=== PATIENT | female | born 1945 | race Caucasian/White ===

== ENCOUNTER 2016-08-02 08:58 | Inpatient (IN) | payer MEDICARE, OTHER ==
[2016-07-20 14:16] LABS: BASOPHILS 0.3 %; BASOPHILS ABSOLUTE 0.02 10/3/uL (0.0-0.16); EOSINOPHILS 2.1 %; EOSINOPHILS ABSOLUTE 0.13 10/3/uL (0.0-0.53); HEMATOCRIT 40.7 % (36.0-48.0); HEMOGLOBIN 13.3 g/dL (12.0-16.0); IMMATURE GRANULOCYTES 0.2 %; IMMATURE GRANULOCYTES ABSOLUTE 0.01 10/3/uL (0.0-0.11); LYMPHOCYTES 28.1 %; MEAN CORPUS HGB CONC 32.7 g/dL (32.0-36.0); MEAN CORPUSCULAR HEMOGLOB 30.1 pg (26.0-34.0); MONOCYTES 5.3 %; MONOCYTES ABSOLUTE 0.32 10/3/uL (0.21-1.20); NEUTROPHILS ABSOLUTE 3.87 10/3/uL (2.02-8.40); PLATELET COUNT 218 10/3/uL (150-400); RBC DISTRIBUTION WIDTH 13.5 % (12.0-16.0); RED CELL COUNT 4.42 10/6/uL (4.0-5.6); WHITE BLOOD CELLS 6.1 10/3/uL (4.5-10.5)
[2016-07-20 14:17] LABS: MANUAL DIFF NO %; MEAN CORPUSCULAR VOLUME 92.1 fL (80-100)
[2016-07-20 14:33] LABS: A/G RATIO 1.7 (0.7-1.9); ALBUMIN 4.1 G/DL (3.5-5.0); ALKALINE PHOSPHATASE 87 U/L (45-117); BUN (BLOOD UREA NITROGEN) 21 MG/DL (6-23); CHLORIDE, SERUM 105 MMOL/L (96-112); CO2 (CARBON DIOXIDE) 30 MMOL/L (24-34); CREATININE 0.71 MG/DL (0.55-1.02); GFR AFRICAN AMERICAN 100 ML/MIN (>=60); GFR NON AFRICAN AMERICAN 86 ML/MIN (>=60); GLOBULIN 2.4 G/DL (2.5-4.1); POTASSIUM, SERUM 4.1 MMOL/L (3.5-5.3); SGOT(AST) 14 U/L (5-40); SGPT(ALT) 31 U/L (5-65); SODIUM, SERUM 143 MMOL/L (135-148); TOTAL BILIRUBIN 0.5 MG/DL (0-1.2); TOTAL PROTEIN 6.5 G/DL (6.0-8.5)
[2016-07-20 14:34] LABS: PARTIAL THROMBO TIME 27.3 SEC (22.5-37.2); PROTIME (NOT ORD) 12.9 SEC (12.0-14.5)
[2016-07-20 14:36] LABS: GLUCOSE, SERUM 109 MG/DL (60-99)
[2016-07-20 15:49] LABS: ASCORBIC ACID (UR NOT ORDER) NEG (NEG); BILIRUBIN, URINE NEGATIVE (NEG); KETONE, URINE NEGATIVE (NEG); LEUKOCYTE ESTERASE(NOT OR NEG (NEG); WBC (NOT ORDERED) (RFLEX) < 1 (0-5)
--- NOTE | ~2016-08-02 | OP ---
Record Of Operation [facility] [address] [place]. [address] NAME: ADA VALDIVIA : 45 STATUS : ADM IN PAT#: [id number] AGE: 70 ADM/REG DATE : 08/02/16 MR#: [id number] REPORT SERV DATE: 08/03/16 DICTATED BY: PAULINA STRINGER DATE: 08/02/16 REPORT STATUS : Draft TRANSCRIBED BY: MODL DATE: 08/02/16 DATE OF PROCEDURE: 08/02/2016 PREOPERATIVE DIAGNOSIS: Right knee arthritis. POSTOPERATIVE DIAGNOSIS: Right knee arthritis. PROCEDURE PERFORMED: Right total knee arthroplasty. SURGEON: Paulina Stringer M.D. SALES MANAGER: Candice Seals. ANESTHESIA: Spinal with sedation, adductor block and local infusion. PROCEDURE IN DETAIL: The patient is clearly identified and after obtaining informed consent is brought to the operating room at [facility] where anesthesia is induced uneventfully with excellent anesthetic effect. Subsequently, the affected extremity is prepped and draped in the usual manner and after an appropriate time-out procedure is performed, via an anterior approach, the skin is divided, fascial planes are elevated, paramedial approach to the knee is made. The structures themselves are elevated, excised, and debrided were appropriate, whereupon the patella is carefully everted, calipered, and planed and with the size and type being reproduced with the appropriate-size patella, trialing is performed successfully. At this point, the patella is then carefully subluxed laterally, the knee is flexed, osteophytes around the distal femur are removed, followed by the ACL being divided. The femoral canal is entered and vented, at which point with the intramedullary guide being utilized, the distal femoral cut is made. At this point, the tibia is carefully subluxed anteriorly. The surrounding soft tissues to the tibia are protected with Hohmann retractors, at which point the extramedullary guide is utilized to perform the proximal tibial cut and after cleansing these tissues, the spacer block is utilized in extension to confirm excellent extension, stability, and alignment. The guiding pins are then all carefully removed and the knee is then flexed. The femur is sized, whereupon the anterior, posterior, chamfer, and box cuts are made appropriately. The proximal tibia then is assessed. Osteophytes and surrounding soft tissues are removed and debrided were appropriate. Posterior osteophytes are removed as well. The menisci are excised and thus concluding trialings performed successfully. The proximal tibia then is carefully prepared utilizing proper cement technique. The permanent implants have been carefully placed into position uneventfully where upon copious irrigations performed, the permanent tibial implants applied and thus concluded. The joint was then copiously irrigated, at which point it is closed carefully in layers including Vicryl and jauna for the skin, at which point Aquacel sterile dressing is applied. The patient is allowed to awaken and is transferred to the bed and subsequently to the recovery room in stable condition having tolerated the procedure well. ESTIMATED BLOOD LOSS: 50 mL. Record Of Operation [facility] [address] [facility] [address] [place]. [address] NAME: ADA VALDIVIA : 45 STATUS : ADM IN [facility]#: [id number] AGE: 70 ADM/REG DATE : 08/02/16 MR#: [id number] REPORT SERV DATE: 08/03/16 DICTATED BY: PAULINA STRINGER DATE: 08/02/16 REPORT STATUS : Draft TRANSCRIBED BY: TEE DATE: 08/02/16 FLUIDS: 1100 mL. TOURNIQUET TIME: 39 minutes. PATHOLOGY: Sent specimen. MICROBIOLOGY: None. COMPLICATIONS: None. SPONGE AND NEEDLE COUNTS: Reportedly correct. ANTIBIOTICS: Administered appropriately preoperatively and ordered to be discontinued within 23 hours. IMPLANTS: Attune knee by DePuy, femur 8, tibia 8, patella 38, polyethylene 12/11. EL/TEE Paulina Stringer M.D. / [id number] CC: Paulina Stringer M.D.
--- NOTE | ~2016-08-02 | DS ---
Discharge Summary [facility] [address] [facility] [place]. [address] NAME: ADA VALDIVIA : 45 STATUS : DIS IN PAT#: [id number] AGE: 70 ADM/REG DATE : 08/02/16 MR#: [id number] REPORT SERV DATE: 08/16/16 DICTATED BY: PAULINA STRINGER DATE: 08/15/16 REPORT STATUS : Draft TRANSCRIBED BY: MODSpike DATE: 08/15/16 Data Collection from hospitalization DISCHARGE DIAGNOSES: 1. Right knee arthritis. 2. Hypertension. 3. Peripheral neuropathy. 4. Gastroesophageal reflux disease. 5. Irritable bowel syndrome. 6. Goiter. 7. Hypothyroidism. 8. Depression and anxiety. CONSULTATIONS: None. PROCEDURES PERFORMED: Right total knee arthroplasty, 08/02/2016. PATHOLOGY: Bone and soft tissue, right knee arthroplasty-changes consistent with degenerative joint disease, mild chronic synovitis-nonspecific. DISCHARGE MEDICATIONS: Wellbutrin XL 300 mg daily, vitamin D 1000 units daily, CoQ10 100 mg daily, hydrochlorothiazide 12.5 mg daily as instructed, [place] 5/325 one to two tablets every four hours as needed, Synthroid 50 mcg daily, Cozaar 50 mg twice a day as instructed, Robaxin 500 mg four times a day as needed, multivitamins one tablet daily, fish oil 1000 mg daily, Prilosec 40 mg daily, Crestor 5 mg at bedtime, probiotics/magnesium as instructed, Coumadin one tablet every evening. CONDITION AT DISCHARGE: Stable. DISPOSITION: The patient was discharged home on a regular diet with activities as instructed. She would follow up with Kade Willis, 08/15/[address] Paulina Stringer, 09/12/2016. HOSPITAL COURSE: This is a 70-year-old female, who has right knee arthritis. She has had bilateral knee pain. She said that cortisone injection had given her good relief, but only for a short period of time. Treatment options were discussed and it was elected to proceed with surgical intervention. She was admitted to the hospital at this time for further evaluation and treatment. Upon admission, she was taken to the operating room, where she underwent the above-mentioned procedure. She tolerated this well and there were no complications. On postop day #1, she was evaluated by Occupational and Physical Therapy. She was up sitting in a bedside chair. She complained of some dizziness on standing. Pain medications were adjusted. SANTI hose were in place. Over the next couple of days, she continued to progress. Discharge planning was performed. Hydrochlorothiazide and losartan were held for systolic blood pressure less than 120. Discharge planning was performed. On 08/05/2016, she was up sitting in a bedside chair. She had not had a bowel movement. She said that she does have problems with constipation normally. She said that she had been evaluated by Cardiology for orthostatic Discharge Summary [address] [address] NAME: ADA VALDIVIA : 45 STATUS : DIS IN PAT#: [id number] AGE: 70 ADM/REG DATE : 08/02/16 MR#: [id number] REPORT SERV DATE: 08/16/16 DICTATED BY: PAULINA STRINGER DATE: 08/15/16 REPORT STATUS : Draft TRANSCRIBED BY: TEE DATE: 08/15/16 hypotension. Discharge instructions were given. Due to her improved and stable condition, she was discharged home with the above-stated instructions. Information collected by: Rosa Jha I submit the above information as my discharge summary. BRONWYN/TEE Paulina Stringer M.D. / [id number] CC: Damaris Hall M.D.
[~2016-08-02 08:58] MED LIST: 8 HOUR650 MG PO; CALCIUM; CELEBREX2 PO; CELEBREX50 MG PO; CO Q-10100 MG PO; COZ25 PO; COZ50 PO; CRESTOR5 MG PO; FISH OIL300 MG PO; FISH-EPA1000 MG PO; FLEX PO; GLUCCHONDR PO; HYDROCHLOROT12.5 MG PO; LOVAZA1 GM PO; MAG; MAGNEBIND300 MG PO; MAGNESIUM; MARLYN FORMULA 50 PO; METHOC500B PO; MULTIPLE VIT PO; MULTIVITAMI1 PO; PRILO PO; PRILOSEC40 MG PO; PROBIOTIC; SKELAXIN8 PO; SYN.05 PO; VITAMIN D1000 UNI1 PO; VITD; WELLXL150 PO; WELLXL300 PO
[2016-08-03 06:06] LABS: HEMOGLOBIN 10.7 g/dL (12.0-16.0)
[2016-08-03 06:07] LABS: HEMATOCRIT 32.5 % (36.0-48.0)
[2016-08-03 06:12] LABS: INTERNATIONAL NORMAL RATI 1.1 UNITS (-); PROTIME (NOT ORD) 14.3 SEC (12.0-14.5)
[2016-08-03 06:21] LABS: CALCIUM, SERUM 8.9 MG/DL (8.5-10.4); CHLORIDE, SERUM 107 MMOL/L (96-112); CO2 (CARBON DIOXIDE) 27 MMOL/L (24-34); CREATININE 0.57 MG/DL (0.55-1.02); GFR AFRICAN AMERICAN 109 ML/MIN (>=60); GFR NON AFRICAN AMERICAN 94 ML/MIN (>=60); GLUCOSE, SERUM 116 MG/DL (60-99); POTASSIUM, SERUM 4.5 MMOL/L (3.5-5.3); SODIUM, SERUM 143 MMOL/L (135-148)
[2016-08-03 06:22] LABS: BUN (BLOOD UREA NITROGEN) 10 MG/DL (6-23)
[2016-08-03] MEDS ORDERED: C5 PO (14:26)
[2016-08-03] MEDS ORDERED: NORCO1 TA1 PO (14:27)
[2016-08-04 04:28] LABS: HEMATOCRIT 27.2 % (36.0-48.0)
[2016-08-04 04:43] LABS: INTERNATIONAL NORMAL RATI 1.3 UNITS (-); PROTIME (NOT ORD) 16.2 SEC (12.0-14.5)
[2016-08-05 05:11] LABS: HEMATOCRIT 26.7 % (36.0-48.0); HEMOGLOBIN 8.9 g/dL (12.0-16.0)
[2016-08-05 05:17] LABS: INTERNATIONAL NORMAL RATI 1.4 UNITS (-); PROTIME (NOT ORD) 16.6 SEC (12.0-14.5)
== END 2016-08-05 15:01 | disposition home or self-care (01) | DRG 470 ==
LOC: SDC/OF 08:58 → PACU 14:36 → 3SO 17:35
PROVIDERS: Orthopaedic Surgery
PROC: 0SRC0J9 Replacement of Right Knee Joint with Synthetic Substitute, Cemented, Open Approach (ICD-10-PCS; principal; 2016-08-02 10:45)
DX: M17.11 Unilateral primary osteoarthritis, right knee (principal); D62 Acute posthemorrhagic anemia; I10 Essential (primary) hypertension; E78.5 Hyperlipidemia, unspecified; E03.9 Hypothyroidism, unspecified; K21.9 Gastro-esophageal reflux disease without esophagitis; F32.9 Major depressive disorder, single episode, unspecified; F41.9 Anxiety disorder, unspecified
CPT/HCPCS: 36415; 71020; 80048; 80053; 81001; 85014; 85018; 85025; 85610; 85730; 86850; 86900; 86901; 87641; 88305; 88311; 93005; 97116-GP; 97150-GP; 97161-GP; 97165-GO; A9270-GY; C1776; G8978-CK-GP; G8979-CI-GP; G8987-CI-GO; G8988-CI-GO; G8989-CI-GO; J0690; J1170; J1885; J2250; J2274; J2370; J2405; J2550; J2795; J3010